=== PATIENT | female | born 1975 | race Caucasian/White ===

== ENCOUNTER → 2019-10-12 15:26 | Outpatient (CLI) | payer OTHER, SELFPAY ==
--- NOTE | ~2019-10-12 | MM_ITS ---
EXAMINATION: MM screening [facility] BI w elisa HISTORY: Screening mammogram TECHNIQUE: Craniocaudal and mediolateral oblique 3-D tomosynthesis images were obtained and synthetic 2-D images were generated. CAD analysis was submitted and interpreted. COMPARISON: 10/10/2018, 09/29/2017, 09/12/2017, 09/06/2016 BREAST PARENCHYMAL COMPOSITION: There are scattered areas of fibroglandular density. FINDINGS: Scattered benign-appearing calcifications are present. There is no evidence of suspicious m ass, calcification, or architectural distortion to suggest malignancy in either breast. There has bee n no suspicious interval change. IMPRESSION: 1. No mammographic evidence of malignancy. 2. Recommend routine screening mammography in one year. BI-RADS Category 2: Benign finding(s). Reviewed, dictated and finalized at location A. PTION SPECIALIST
== END ==
DX: Z12.31 Encounter for screening mammogram for malignant neoplasm of breast (principal)
CPT/HCPCS: 77063; 77067

== ENCOUNTER → 2021-01-15 10:05 | Outpatient (CLI) | payer OTHER, SELFPAY ==
--- NOTE | ~2021-01-15 | MM_ITS ---
EXAMINATION: MM screening [facility] BI w elisa HISTORY: Screening mammogram TECHNIQUE: Craniocaudal and mediolateral oblique 3-D tomosynthesis images were obtained and synthetic 2-D images were generated. CAD analysis was submitted and interpreted. COMPARISON: 10/12/2019, 10/10/2018 bilateral digital screening mammogram examinations 09/29/2017 diagnostic right digital mammogram and limited right breast ultrasound 09/12/2017 bilateral digital screening mammogram BREAST PARENCHYMAL COMPOSITION: The breasts are heterogeneously dense, which may obscure small masses . FINDINGS: Occasional benign calcification. There is no evidence of suspicious mass, calcification, or architectural distortion to suggest malignancy in either breast. There has been no suspicious interv al change. IMPRESSION: 1. No mammographic evidence of malignancy. 2. Recommend routine screening mammography in one year. BI-RADS Category 2: Benign finding(s). Reviewed, dictated and finalized at location A.
== END ==
DX: Z12.31 Encounter for screening mammogram for malignant neoplasm of breast (principal)
CPT/HCPCS: 77063; 77067

== ENCOUNTER → 2021-04-17 17:01 | Outpatient (CLI) | payer OTHER, SELFPAY ==
--- NOTE | ~2021-04-17 | XR_ITS ---
XR lumbar spine min 4V DATE: 04/17/2021 18:04 INDICATION: Low back pain TECHNIQUE: AP, lateral, bilateral oblique views, coned lateral lumbosacral view COMPARISON: None FINDINGS: There is a transitional fifth lumbar vertebra with sacralization and pseudoarthrosis on the left, lumbarization on the right. There is mild lumbar levoscoliosis. No fracture or bone destruction of the lumbar spine is detected. The lumbar pedicles are intact. No s pondylolysis or spondylolisthesis is detected. There is multilevel mild degenerative disc disease of the lumbar spine. Sacroiliac joints are normal. 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 IMPRESSION: Transitional fifth lumbar vertebra with sacralization pseudoarthros is on the left Mild levoscoliosis Multilevel mild degenerative disc disease
--- NOTE | ~2021-04-17 | XR_ITS ---
XR sacroiliac joints min 3V DATE: 04/17/2021 18:04 INDICATION: Low back pain TECHNIQUE: AP and oblique views COMPARISON: None FINDINGS: There is a transitional lumbosacral vertebra with sacralization pseudoarthrosis on the left , lumbarization on the right. Transitional lumbosacral vertebra may be a source of chronic low back p ain. No sacral fracture or bone destruction. The sacroiliac joints appear normal. IMPRESSION: Transitional lumbosacral vertebra with sacralization and pseudarthrosis on the left Reviewed, dictated and finalized at Location A. Reviewed, dictated and finalized at location A. IMPRESSION: Transitional lumbosacral vertebra with sacralization and pseudarthr osis on the left
== END ==
PROVIDERS: PCP Family Medicine; Visit Provider Physician Assistant
DX: M51.36 Other intervertebral disc degeneration, lumbar region (principal)
CPT/HCPCS: 72110; 72202

== ENCOUNTER 2022-02-18 14:29 | Outpatient (CLI) | payer OTHER, SELFPAY ==
--- NOTE | 2022-02-18 | ECHO_ITS ---
Patient Info Name: Anjana Parekh Age: 46 years : 1975 Gender: Female Ht: 68 in Wt: 164 lbs BSA: 1.90 m2 HR: 71 bpm BP: 135 / 82 mmHg Technical Quality: Fair Exam Date: 02/18/2022 3:11 PM Exam Location: [facility] Patient Status: Outpatient Admit Date: 02/18/2022 Staff Ordering Physician: AdánCricket DO Manager Study: Amairani Godwin RDCS Attending Provider: AdánCricket DO Exam Type: CA echo doppler color flow Study Info Indications - HEART MURMUR Complete two-dimensional, color flow and Doppler transthoracic echocardiogram is performed. Summary 1. Complete two-dimensional, color flow and Doppler transthoracic echocardiogram is performed. 2. Left ventricular chamber dimension is normal. 3. Left ventricular systolic function is normal, estimated at 60-65%. 4. The left ventricular diastolic function is normal. 5. E/e' 7 is not elevated. 6. There is trace mitral valve regurgitation. 7. There is mild tricuspid valve regurgitation. 8. No pulmonary hypertension, estimated pulmonary arterial systolic pressure is 25 mmHg. Left Ventricle E/e' 7 is not elevated. Left ventricular chamber dimension is normal. Left ventricular systolic function is normal, estimated at 60-65%. The left ventricular diastolic function is normal. Right Ventricle Right ventricular chamber dimension is normal. Right ventricular systolic function is normal. Left Atria Left atrial chamber dimension is normal. Right Atria Right atrial chamber dimension is normal. Aortic Valve The aortic valve is trileaflet. There is no aortic valve stenosis. There is no aortic valve regurgitation. Pulmonic Valve There is no pulmonic regurgitation. Mitral Valve There is no mitral valve stenosis. There is trace mitral valve regurgitation. Tricuspid Valve There is mild tricuspid valve regurgitation. No pulmonary hypertension, estimated pulmonary arterial systolic pressure is 25 mmHg. Pericardium/Pleural There is no pericardial effusion. Inferior Vena Cava Normal inferior vena cava with >50% collapse upon inspiration consistent with normal right atrial pressure, 5 mmHg. Aorta The aortic root size at the sinus of Valsalva is normal. Left Ventricular Outflow Tract Name Value Normal LVOT 2D LVOT Diameter 2.0 cm LVOT Doppler LVOT Peak Gradient 5 mmHg LVOT Mean Gradient 3 mmHg LVOT VTI 22 cm LVOT VTI/AV VTI Ratio 0.8 LVOT Stroke Volume 68 ml LVOT CO 14.2 l/min LVOT CI 7.5 l/min/m2 Pulmonic Valve Name Value Normal PV Doppler PV Peak Gradient 4 mmHg Mitral Valve
== END 2022-02-18 14:30 | disposition home or self-care (01) ==
LOC: ANHCARD 14:32
PROVIDERS: PCP Student in an Organized Health Care Education/Training Program; Visit Provider Student in an Organized Health Care Education/Training Program
DX: R01.1 Cardiac murmur, unspecified (principal); I36.1 Nonrheumatic tricuspid (valve) insufficiency
CPT/HCPCS: 93306

== ENCOUNTER → 2022-05-31 10:29 | Outpatient (CLI) | payer OTHER, SELFPAY ==
--- NOTE | ~2022-05-31 | MM_ITS ---
EXAMINATION: MM screening [facility] BI w elisa HISTORY: Screening TECHNIQUE: Craniocaudal and mediolateral oblique 3-D tomosynthesis images were obtained and synthetic 2-D images were generated. CAD analysis was submitted and interpreted. COMPARISON: Comparison to multiple prior studies sequentially, with oldest reviewed study dated 09/06. BREAST PARENCHYMAL COMPOSITION: The breasts are heterogeneously dense, which may obscure small masses . FINDINGS: There is no evidence of suspicious mass, calcification, or architectural distortion to sugg est malignancy in either breast. There has been no suspicious interval change. IMPRESSION: 1. No mammographic evidence of malignancy. 2. Recommend routine screening mammography in one year. BI-RADS Category 1: Negative Reviewed, dictated and finalized at location A.
== END ==
PROVIDERS: PCP Student in an Organized Health Care Education/Training Program; Visit Provider Student in an Organized Health Care Education/Training Program
DX: Z12.31 Encounter for screening mammogram for malignant neoplasm of breast (principal)
CPT/HCPCS: 77063; 77067

== ENCOUNTER → 2023-06-18 10:40 | Outpatient (CLI) | payer OTHER, SELFPAY ==
--- NOTE | ~2023-06-18 | MM_ITS ---
EXAMINATION: MM screening [facility] BI w elisa HISTORY: Screening mammogram TECHNIQUE: Craniocaudal and mediolateral oblique 3-D tomosynthesis images were obtained and synthetic 2-D images were generated. CAD analysis was submitted and interpreted. COMPARISON: 05/31/2022, 01/15/2021, 10/12/2019 BREAST PARENCHYMAL COMPOSITION: There are scattered areas of fibroglandular density. FINDINGS: No suspicious mass, calcification, or architectural distortion are identified in either lidia ast to suggest malignancy. There has been no suspicious interval change. IMPRESSION: 1. No mammographic evidence of malignancy. 2. Recommend routine screening mammography in one year. BI-RADS Category 1: Negative Reviewed, dictated and finalized at location A.
== END ==
PROVIDERS: PCP Student in an Organized Health Care Education/Training Program
DX: Z12.31 Encounter for screening mammogram for malignant neoplasm of breast (principal)
CPT/HCPCS: 77063; 77067

== ENCOUNTER 2024-07-02 10:53 | Outpatient (CLI) | payer OTHER, SELFPAY ==
--- NOTE | ~2024-07-02 | MM_ITS ---
EXAMINATION: MM screening [facility] BI w elisa HISTORY: Screening mammogram TECHNIQUE: Craniocaudal and mediolateral oblique 3-D tomosynthesis images were obtained and synthetic 2-D images were generated. CAD analysis was submitted and interpreted. COMPARISON: 06/18/2023, 05/31/2022, 01/15/2021, 10/12/2019 BREAST PARENCHYMAL COMPOSITION:Not Dense. There are scattered areas of fibroglandular density. FINDINGS: No suspicious mass, calcification, or architectural distortion are identified in either lidia ast to suggest malignancy. There has been no suspicious interval change. IMPRESSION: No mammographic evidence of malignancy. Recommend routine screening mammography in one year. BI-RADS Category 1: Negative Reviewed, dictated and finalized at location . CIPAL BOND TRADER
== END 2024-07-02 10:54 | disposition home or self-care (01) ==
PROVIDERS: PCP Student in an Organized Health Care Education/Training Program
DX: Z12.31 Encounter for screening mammogram for malignant neoplasm of breast (principal)
CPT/HCPCS: 77063; 77067

== ENCOUNTER 2025-06-13 10:15 | Outpatient (CLI) | payer OTHER, SELFPAY ==
--- NOTE | ~2025-06-13 | US_ITS ---
EXAMINATION: US abdomen complete, 06/13/2025 10:37 CDT HISTORY: Neutropenia COMPARISON: None Technique: Isaac-scale and color Doppler images were obtained. Findings: LIVER: Lliver contours intact, no lesions. Normal echogenicity. . The liver measures 16.2 cm. GALLBLADDER/BILIARY: There is no gallbladder wall thickening, no pericholecystic fluid, probable polyp measures 3 x 4 mm. CBD 5.1 mm. Austwell sign negative. PANCREAS: Pancreas limited by bowel gas. SPLEEN: Unremarkable, no splenomegaly. KIDNEYS: Right Kidney: Right kidney 10.6 x 4.8 x 5.7 cm, normal. Left Kidney: Left kidney 9.1 x 5.4 x 5.6 cm, normal. AORTA: Normal caliber aorta. IVC: Unremarkable. FREE FLUID: None. Impression: No acute abnormality. Reviewed, dictated and finalized at location P. Impression: No acute abnormality.
--- OUTSIDE RECORDS SUMMARY | 2025-06-13 11:13 | XMS_ITS | Encounter Summary ---
Author Organization [facility] Address [address] [place] [address] Care Team Providers Care Call Worker Person Name Role Phone Cricket Mccain Primary Care Provider + Encounter Details Date Type Department Care Team (Late Contact Info) Description 06/11/2025 External Device Data [facility] ABSTRACTION Provider, Abstract NO ADDRESS ON FILE Social History Tobacco Use Types Packs/Day Years Used Date Smoking Tobacco: Never Smokeless Tobacco: Never Alcohol Use Standard Drinks/Week Comments Yes 2 (1 standard drink = 0.6 oz pur e alcohol) occasionally Feeling Safe Answer Date Recorded Are you in a relationship wi th someone who hurts you emotionally and/or physically? 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 on file Not on file N ot on file documented as of this encounter Plan of Treatment Upcoming Encounters Date Type Department Care Team (Late st Contact Info) Description 06/20/2025 4:30 PM CDT Telephone Check Up [facility] Oncology and Hematology - [place] [address] [place] [address] Jesus Fox MD [address] [place] [address] documented as of this encounter Visit Diagnoses Not on filedocumented in this encounter Care Teams Call Worker Person Relationship Specialty Start Date End Date Cricket Mccain DO [address] [place] [phone] PCP - General Family Practice 03/03/23 documented as of this encounter
--- OUTSIDE RECORDS SUMMARY | 2025-06-13 11:13 | XMS_ITS | Encounter Summary ---
Author Organization [facility] Address 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 file Not on file N ot on file documented as of this encounter Plan of Treatment Upcoming Encounters Date Type Department Care Team (Late st Contact Info) Description 06/20/2025 4:30 PM CDT Telephone Check Up [facility] Oncology and Hematology - [place] [address] [place] [address] Jesus Fox MD [address] [facility] [address] [place] [address] documented as of this encounter Visit Diagnoses Not on filedocumented in this encounter Care Teams Firer Portable Boiler Relationship Specialty Start Date End Date Cricket Mccain DO [address] [place] [phone] PCP - General Family Practice 03/03/23 documented as of this encounter
--- OUTSIDE RECORDS SUMMARY | 2025-06-13 11:13 | XMS_ITS | Encounter Summary ---
Author Organization [facility] Address [address] [place] [address] Care Team Providers Care Marketing Summer Intern Name Role Phone Cricket Mccain DO Primary Care Provider + Encounter Details Date Type Department Care Team (Late st Contact Info) Description 06/25/2024 Jeeran Message Enc [facility] Family & Internal Medicine [address] [phone] [place], [facility] Provider Xray results Social History Tobacco Use Types Packs/Day Years Used Date Smoking Tobacco: Never Smokeless Tobacco: Never Comments:Smoked on and off i n my 20s Alcohol Use Standard Drinks/Week Comments Yes 2 (1 standard drink = 0.6 oz pur e alcohol) 1-2 times a week PHQ-2 Answer Date Recorded Patient Health Questionnaire-2 Score 0 01/19/2024 Comments No Sex and Gender Information Value Date Recorded Sex Assigned at Female 01/18/2025 7:54 AM CDT Legal Sex Female 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
--- OUTSIDE RECORDS SUMMARY | 2025-06-13 11:14 | XMS_ITS | Clinical Summary ---
Author Organization [facility] Address [address] [facility] [place] [address] Phone Care Team Providers Care Drainage Design Coordinator Name Role Phone Cricket Mccain Primary Care Provider + Allergies No known active allergies Medications multivitamin (MULTIPLE VITAMINS ORAL) Take by mouth. Active valACYclovir (VALTREX) 1 gram tablet Take 1,000 mg by mouth 1 time daily as needed. 01/13/2022 Active Active Problems Problem Noted Date Diagnosed Date Pelvic mass 03/08/2022 Encounters Date Type Department Care Team Description 06/12/2025 External Device Data STL ABSTRACTION Provider, Abstract 06/11/2025 External Device Data STL ABSTRACTION Provider, Abstract 06/03/2025 1:30 PM CDT Office Visit [facility] Oncology and Hematology - [place] [address] [place] [address] Jesus Fox MD Neutropenia, unspecified type (Primary Dx); Chronic anemia from Last 3 Months Family History Medical History Relation Name Comments Healthy Brother Healthy Daughter Coronary Artery Disease Father Healthy Father Hypertension Father Stroke Father Diabetes Maternal Cousin Brain Cancer Maternal Grandmother Lung Cancer Mother 71 Osteoporosis Mother 71 Lymphoma Paternal Grandfather Prostate Cancer Paternal Grandfather Healthy Sister Healthy Son Relation Name Status Comments Brother Alive Daughter Alive Father Alive Maternal Cousin Maternal Grandfather Maternal Grandmother Mother 71 Paternal Grandfather Paternal Grandmother Sister Alive Son Alive Social History Tobacco Use Types Packs/Day Years Used Date Smoking Tobacco: Never Smokeless Tobacco: Never Tobacco Cessation:Counseling Given: Not Answered Alcohol Use Standard Drinks/Week Comments Yes 2 (1 standard drink = 0.6 oz pur e alcohol) occasionally Feeling Safe Answer Date Recorded Are you in a relationship wi th someone who hurts you emotionally and/or physically? 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 Not on file N ot on file Last Filed Vital Signs Vital Sign Reading Time Taken Comments Blood Pressure 130/87 06/03/2025 1:33 PM CDT Pulse 76 06/03/2025 1:33 PM CDT Temperature 36.6 C (97.9 F) 06/03/2025 1:33 PM CDT Respiratory Rate 14 06/03/2025 1:33 PM CDT Oxygen Saturation 99% 06/03/2025 1:33 PM CDT Inhaled Oxygen Concentration - - Weight 72.6 kg (160 lb) 06/03/2025 1:33 PM CDT Height 172.7 cm (5' 8) 06/03/2025 1:33 PM CDT Body Mass Index 24.33 06/03/2025 1:33 PM CDT Plan of Treatment Upcoming Encounters Date Type Department Care Team (Late st Contact Info) Description 06/20/2025 4:30 PM CDT Telephone Check Up [facility] Oncology and Hematology - [place] [address] [facility] [address] [place] [address] Jesus Fox MD [address] [facility] [address] [place] [address] Health Maintenance Due Date Last Done Comments HEPATITIS B VACCINES (1 of 3 - 19+ 3-dose series) 1994 FIT-DNA Q 3 years 2020 FIT/FOBT Q 1 year 2020 Flex Sig/CT Colonography Q 5 years 2020 BREAST CANCER SCREENING 05/31/2023 05/31/20 22, 05/31/2022, 01/15/2021, Additional history exists PAP SMEAR 02/01/2025 02/01/2022, 05/2 02/2021, 09/21/2019 INFLUENZA VACCINE (#1) 2025 0, 07/01/2019, 06/24/2019, Additional history exists COVID-19 Vaccine (4 - 2024-2 6 season) 2025 08/13/2021, 11/01/2020, 10/03/2020 ZOSTER VACCINE (1 of 2) 2025 CERVICAL CANCER SCREENING 02/01/2027 HPV/Cotest (21-29) 02/01/2027 02/01/2022, 0 01/15/2021, 09/21/2019 HPV/Cotest (30-65) 02/01/2027 02/01/2022, 0 01/15/2021, 09/21/2019 DTAP/TDAP/TD VACCINES (2 - T d or Tdap) 01/18/2033 01/18/2023 COLORECTAL SCREENING 03/03/2033 03/03/2023, 03/03/20 Colorectal Cancer Screening 03/03/2033 Preventative Visit- Commercial Completed 0 01/18/2025, 01/19/2024, 01/18/2023, Additional history exists Procedures Procedure Name Priority Date/Time Associated Diagnosis Comments COLONOSCOPY REPORT 03/03/2023 7: 55 AM CDT MAMMO 3D GAUDENCIO SCREEN BILAT W OR WO CAD Routine 05/31/2022 Breast cancer screening by mammogram CERV/VAG CYTO SCREEN PAP W/HPV Routine 02/01/2022 2:45 PM CDT Encounter for gynecological examination without abnormal finding Special screening examination for human papillomavirus (HPV) from Last 3 Months or Most Recently Relevant to Health Maintenance Results * COLONOSCOPY REPORT (03/03/2023 7:55 AM CDT) Narrative Procedure Note Kirti Castillo MD - 03/03/2023 7:55 AM CDT [facility] Endoscopy Patient Name: Anjana Brody Procedure Date: 03/03/2023 Date of : 1975 Age: 47 Attending MD: Kirti Castillo MD, Procedure: Colonoscopy Indications: Screening for colorectal malignant neoplasm Providers: Kirti Castillo MD Referring MD: Stephan Brewer MD Requesting Provider: Cricket Mccain DO Medicines: Monitored Anesthesia Care Procedure: Informed consent was obtained for the procedure, including moderate sedation after risks were discussed. Based on the pre-procedure assessment, including review of the patient's medical history, medications, allergies, and review of systems, the patient was deemed to be an appropriate candidate for sedation. A timeout was performed. Continuous ECG monitoring, pulse oximetry, blood pressure monitoring, and direct observation were performed. The Colonoscope was introduced through the anus and advanced to the terminal ileum. The colonoscopy was performed without difficulty. The patient tolerated the procedure well. The quality of the bowel preparation was good. The terminal ileum, ileocecal valve, appendiceal orifice, and rectum were photographed. Estimated Blood Loss: Estimated blood loss was minimal. Findings: The perianal examination was normal. The terminal ileum appeared normal. The colon (entire examined portion) appeared normal. The exam was otherwise without abnormality on direct and retroflexion views. Complications: No immediate complications. Impression: - The examined portion of the ileum was normal. - The entire examined colon is normal. - The examination was otherwise normal on direct and retroflexion views. - No specimens collected. Recommendation: - Patient has a contact number available for emergencies. The signs and symptoms of potential delayed complications were discussed with the patient. Return to normal activities tomorrow. Written discharge instructions were provided to the patient. - Resume previous diet. - Continue present medications. - Repeat colonoscopy in 10 years for screening purposes. Kirti Castillo MD 03/03/2023 7:55:11 AM This report has been signed electronically. Number of Addenda: 0 Procedure Date: 03/03/2023 7:26:23 AM [id number] [address] [place] Kirti Castillo MD GI PROCEDURE ORDERABLES F inal Result * MAMMO SCRN BILAT 3D GAUDENCIO W OR WO CAD (05/31/2022) Anatomical Region Laterality Modality Breast Bilateral Mammography us Nick Whittaker MD MAMMO ORDERABLES Final Resul t * (ABNORMAL) CERV/VAG CYTO SCREEN PAP W/HPV (02/01/2022 2:45 PM CDT) CLINICAL INFORMATION [facility] Comment:Information not prov ided LAST MENSTRUAL PERIOD [facility] Comment:INFORMATION NOT PROV IDED PREV PAP: [facility] Comment:INFORMATION NOT PROV IDED PREV BX: [facility] Comment:INFORMATION NOT PROV IDED SOURCE [facility] Comment:Endocervix ADEQUACY: [facility] Comment: Satisfactory for evaluation. Endocervical/transformation zone component absent. Age and/or menstrual status not provided PAP INTERP [facility] Comment:Negative for intraep ithelial lesion or malignancy. COMMENT (PAP TEST) [facility] Comment: This Pap test has been evaluated with computer assisted technology. CHIROPRACTIC ASSISTANT: [facility] Comment: DDS, CT(ASCP) CT screening location: [place] [address] [place] [address] REVIEW CHIROPRACTIC ASSISTANT: [facility] Comment: AMW, CT(ASCP) CT screening location: [place] [address] [place] [address] EXPLANATORY NOTE [facility] Comment: EXPLANATORY NOTE: The Pap is a screening test for cervical cancer. It is not a diagnostic test and is subject to false negative and false positive results. It is most reliable when a satisfactory sample, regularly obtained, is submitted with relevant clinical findings and history, and when the Pap result is evaluated along with historic and current clinical information. HPV E6/E7 Detected( A) Not Detected [facility] Comment: Methodology: Industrial Conveyor Belt Repairer-Mediated Amplification This assay detects E6/E7 viral messenger RNA (mRNA) from 14 high-risk HPV types (16,18,31,33,35,39,45,51,52,56,58,59,66,68). Cervical sources are required for HPV testing. If a vaginal source from a patient who has had a total hysterectomy with removal of cervix was submitted, please contact the testing laboratory for alternative testing options. For additional information, please refer to http://education.Eveo.[place]/faq/RHL313r3 (This link if provided for information/ educational purposes only.) Test Performed at: [facility] [address] [id number] Edwin Arenas D.O., MPH SL Genital SWAB OF ENDOCERVIX / Unknown 02/01/2022 2:45 PM CDT 02/01/2022 11:40 PM CDT us Nick Whittaker MD PATHOLOGY/CYTOLOGY ORDERABLE S Final Result [facility] [phone] from Last 3 Months or Most Recently Relevant to Health Maintenance Insurance [employer] OPEN ACCESS [facility] Address: [facility] [id number] [place] [phone] [employer] OPEN ACCESS Advance Directives For more information, please contact: [phone] * Full Code (Latest Code Status on File) Date Activated Date Inactivated Comments 03/03/2023 7:06 AM 03/03/2023 10:30 AM Care Teams Drainage Design Coordinator Relationship Specialty Start Date End Date Cricket Mccain DO [address] [place] [phone] PCP - General Family Practice 03/03/23
--- OUTSIDE RECORDS SUMMARY | 2025-06-13 11:14 | XMS_ITS | Clinical Summary ---
Author Organization [facility] Address [address] [place] [address] Care Team Providers Care Council Member Name Role Phone Stephan Brewer MD Primary Care Provider [phone] Source Comments [facility],non-owned Affiliates and Associated Physician Practices is amultiple site organization consisting of ambulatory clinics and hospital sitesin [place], [place], [place] and [place]. This disclosure is being madepursuant to the Care Everywhere program and may not contain all information available regarding this patient. Last updated 18.[facility] Allergies No known active allergies Medications * Be aware that medications may not be up to date on this document. Alwaysverify current medications with the patient. Multiple Vitamin (MULTI VITAMIN DAILY PO) Active fluticasone propionate (FLONASE) 50 MCG/ACT nasal spray [place] 2 sprays into each nostril once daily 1 bottles 05/03/2019 Active Immunizations Immunization Administration Dates Next Due INFLUENZA VACCINE, QUADR. 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 Gender Identity Not on file Sexual Orientation Not on file Last Filed Vital Signs Vital Sign Reading Time Taken Comments Blood Pressure 112/78 05/03/2019 3:31 PM CDT Pulse 78 05/03/2019 3:31 PM CDT Temperature 37.1 C (98.7 F) 05/03/2019 3:31 PM CDT Respiratory Rate 17 05/03/2019 3:31 PM CDT Oxygen Saturation 98% 04/13/2019 9:10 AM CDT Inhaled Oxygen Concentration - - Weight 72.6 kg (160 lb) 05/03/2019 3:31 PM CDT Height 175.3 cm (5' 9) 05/03/2019 3:31 PM CDT Body Mass Index 23.63 05/03/2019 3:31 PM CDT Plan of Treatment Health Maintenance Due Date Last Done Comments COLOGUARD (AGES 45-75) - COL ON CA SCREENING 1975 COLON MONITORING 1975 COLONOSCOPY - COLON CA SCREENING 1975 CT COLONOGRAPHY - COLON CA SCREENING 1975 Colorectal Cancer Screening 1975 FIT - COLON CA SCREENING 1975 FLEX SIG - COLON CA SCREENING 1975 LIPID TESTING 1975 MAMMOGRAM 1975 HIV SCREENING 1990 HEPATITIS C SCREENING 05/09/1993 DTAP/TDAP/TD VACCINES (1 - Tdap) 1994 HEPATITIS B VACCINE (1 of 3 - 19+ 3-dose series) 1994 DEPRESSION SCREENING 08/22/2024 COVID-19 VACCINE (1 - 2023-2 5 season) 2025 INFLUENZA VACCINE (#1) 2025 0, 06/24/2019, 07/15/2017 PNEUMOCOCCAL VACCINE 50+ (1 of 1 - PCV) 2025 ZOSTER VACCINE (1 of 2) 2025 HIB VACCINE Aged Out No longer eligi ble based on patient's age to complete this topic HPV VACCINE Aged Out No longer eligi ble based on patient's age to complete this topic MENINGOCOCCAL (Group B) VACCINE SHARED DECISION-MAKING Aged Out No longer eligible based on patient's age to complete this topic MENINGOCOCCAL GROUPS A/C/Y/W VACCINE Aged Out No longer eligible b ased on patient's age to complete this topic Insurance [facility] Care Teams Council Member Relationship Specialty Start Date End Date Stephan Brewer MD [address] [place] [address] PCP - General Family Medicine 07/15/17
--- OUTSIDE RECORDS SUMMARY | 2025-06-13 11:14 | XMS_ITS | Encounter Summary ---
Author Organization [facility] Address 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 Gender Identity Not on file Sexual Orientation Not on file documented as of this encounter Plan of Treatment Upcoming Encounters Date Type Department Care Team (Late st Contact Info) Description 06/20/2025 4:30 PM CDT Telephone Check Up [facility] Oncology and Hematology - [place] [address] [facility] [address] [facility] [address] [place] [address] Jesus Fox MD [address] [place] [address] documented as of this encounter Procedures Procedure Name Priority Date/Time Associated Diagnosis Comments IRON PANEL Routine 01/10/2006 9:31 AM CDT documented in this encounter Results * (ABNORMAL) IRON PANEL (01/10/2006 9:31 AM CDT) IRON 50 37 - 160 ug/dL INTERFACE SYSTEM Comment:Hemolyzed: Result ma y be falsely elevated. TRANSFERRIN 303 200 - 360 mg/dL INTERFACE SYSTEM IRON % SATURATION 13(L) 15 - 50 % INTERFACE SYSTEM Comment:Hemolyzed: Result ma y be falsely elevated. TIBC 385 250 - 450 ug/dL INTERFACE SYSTEM 01/10/2006 9:31 AM CDT us P Sam Leong MD CHEMISTRY ORDERABLES Final Res ult Performing Organization Address City/State/[facility] Co de Phone Number INTERFACE SYSTEM Refer to clinic/hospital department documented in this encounter Visit Diagnoses Diagnosis Telogen effluvium- Primary documented in this encounter Care Teams Vehicle Detailer Relationship Specialty Start Date End Date Cricket Mccain DO [address] [place] [phone] PCP - General Family Practice 03/03/23 documented as of this encounter
--- OUTSIDE RECORDS SUMMARY | 2025-06-13 11:14 | XMS_ITS | Encounter Summary ---
Author Organization [facility] Address 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 Gender Identity Not on file Sexual Orientation Not on file documented as of this encounter Plan of Treatment Upcoming Encounters Date Type Department Care Team (Late st Contact Info) Description 06/20/2025 4:30 PM CDT Telephone Check Up [facility] Oncology and Hematology - [place] [address] [place] [address] [address] [place] [address] Jesus Fox MD [address] [facility] [address] [place] [address] documented as of this encounter Procedures Procedure Name Priority Date/Time Associated Diagnosis Comments URINALYSIS WITH REFLEX CULTURE Routine 09/05/2007 5:28 PM AIRWORTHINESS INSPECTOR URINALYSIS W/REFLEX MICROSCOPIC Routine 09/05/2007 5:28 PM AIRWORTHINESS INSPECTOR documented in this encounter Results * URINALYSIS (09/05/2007 5:28 PM AIRWORTHINESS INSPECTOR) COLOR UA Pale Yellow INTERFAC E SYSTEM CLARITY UA Clear Clear INTERFACE SYSTEM SPECIFIC GRAVITY UA 1.005 1.001 - 1.035 INTERFACE SYSTEM PH UA 7.0 5.0 - 8.0 INTERFACE SYSTEM LEUKOCYTE ESTERASE UA Negative Negative INTERFACE SYSTEM NITRITE UA Negative Negative INTERFACE SYSTEM PROTEIN UA Negative Negative INTERFACE SYSTEM GLUCOSE UA Negative Negative INTERFACE SYSTEM KETONES UA Negative Negative INTERFACE SYSTEM UROBILINOGEN UA <1 <=1 mg/dL INTE RFACE SYSTEM BILIRUBIN UA Negative Negative INTERFA CE SYSTEM BLOOD UA Negative Negative INTERFACE SYSTEM 09/05/2007 5:28 PM AIRWORTHINESS INSPECTOR Nick Whittaker MD URINE ORDERABLES Edited Performing Organization Address [facility] de Phone Number INTERFACE SYSTEM Refer to clinic/hospital department * URINALYSIS WITH REFLEX CULTURE (09/05/2007 5:28 PM AIRWORTHINESS INSPECTOR) URINE CULTURE ORDER Not indicated INTERFACE SYSTEM Comment: Criteria for a reflex culture include one or more of the following: Abn ormal nitrite, leukocyte esterase, WBCs or RBCs. Lack of qualifying criteria does not exclude the possiblity of a urinary tract infection. Dilute urine, drug interference, etc. may decrease the sensitivity of the criteria analytes. 09/05/2007 5:28 PM AIRWORTHINESS INSPECTOR Nick Whittaker MD URINE ORDERABLES Edited Performing Organization Address [facility] Phone Number INTERFACE SYSTEM Refer to clinic/hospital department documented in this encounter Visit Diagnoses Not on filedocumented in this encounter Care Teams Finishing Area Operator Relationship Specialty Start Date End Date Cricket Mccain DO [address] [place] [phone] PCP - General Family Practice 03/03/23 documented as of this encounter
--- OUTSIDE RECORDS SUMMARY | 2025-06-13 11:14 | XMS_ITS | Encounter Summary ---
Author Organization [facility] Address 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 Gender Identity Not on file Sexual Orientation Not on file documented as of this encounter Plan of Treatment Upcoming Encounters Date Type Department Care Team (Late st Contact Info) Description 06/20/2025 4:30 PM CDT Telephone Check Up [facility] Oncology and Hematology - [place] [address] [facility] [address] [place] [address] Jesus Fox MD [address] [facility] [address] [place] [address] documented as of this encounter Visit Diagnoses Diagnosis Unspecified indication for care or intervention related to labor and delivery, delivered- Primary documented in this encounter Care Teams Search Engine Optimization Consultant Relationship Specialty Start Date End Date Cricket Mccain DO [address] [place] [phone] PCP - General Family Practice 03/03/23 documented as of this encounter
--- OUTSIDE RECORDS SUMMARY | 2025-06-13 11:14 | XMS_ITS | Clinical Summary ---
Author Organization [facility] Address [address] [place] [address] Care Team Providers Care Head Of Global Strategic Partnerships Name Role Phone Nick Whittaker MD Unavailable [phone] Cricket Mccain DO Primary Care Provide r Allergies No known active allergies Medications multivitamin tablet Take by mouth Active valACYclovir (VALTREX) 1 gram tablet 07/09/2019 Active carisoprodoL (SOMA) 350 mg tablet Take 1 tablet (350 mg total) by mouth 3 (three) times a day as needed Active norgestrel-ethi nyl estradioL (ELIAZAR-OGESTRGurvinder HAYES) 0.3-30 mg-mcg per tabletIndicatio ns:Dysmenorrhea Take 1 tablet by mouth daily Skip placebo pills. Take active pills continuously . 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 Immunizations Immunization Administration Dates Next Due Influenza, Quadrivalent, Jodi l Culture-based MDCK, Antibiotic Free, Intramuscular 06/09/2018 Influenza, Quadrivalent, Spl it, Preservative Free, Intramuscular 06/10/2020,06/24/2019,07/15/2017 Influenza, Unspecified 06/26/2024,2022,06/15/2022,06/20 Tdap 01/18/2023 Surgical History Surgery Date Site/Laterality Comments SECTION CERVICAL BIOPSY W/ LOOP ELECTRODE EXCISION N/A Medical History Medical History Date Comments Heart murmur Family History Medical History Relation Name Comments Heart disease Father Hyperlipidemia Father Stroke Father Cancer Mother Stroke Mother Relation Name Status Comments Father Mother Social History Tobacco Use Types Packs/Day Years Used Date Smoking Tobacco: Never Smokeless Tobacco: Never Tobacco Cessation:Counseling Given: Not Answered Comments Unknown Sex and Gender Information Value Date Recorded Sex Assigned at Not on file Legal Sex Female 4:06 AM MOBILE QA TESTER Gender Identity Female 09/07/2021 1:17 PM MOBILE QA TESTER Sexual Orientation Straight 04/29/2021 2: 59 PM CDT Obstetrics History Para Term AB IAB SAB Ectopic Multiple Livin g Live Births 2 2 2 Date Outcome GA Total Labor Labor/2nd/3rd Weight Sex Type Anes PTL Mary A1 A5 Name Clin 2003 Term 40w 0d 3.799 kg (8 lb 6 oz) M CS-LT ranv John Comments:FTP 2007 Term 40w 0d 3.771 kg (8 lb 5 oz) F CS-LT ranv Kaci Last Filed Vital Signs Vital Sign Reading Time Taken Comments Blood Pressure 136/78 08/03/2024 1:03 PM MOBILE QA TESTER Pulse 84 08/03/2024 1:03 PM MOBILE QA TESTER Temperature 36.6 C (97.8 F) 08/03/2024 1:03 PM MOBILE QA TESTER Respiratory Rate 16 08/03/2024 1:03 PM MOBILE QA TESTER Oxygen Saturation 99% 08/03/2024 1:03 PM MOBILE QA TESTER Inhaled Oxygen Concentration - - Weight 72.7 kg (160 lb 4.8 oz) 08/03/2024 1:03 P M MOBILE QA TESTER Height 174 cm (5' 8.5) 08/03/2024 1:03 PM MOBILE QA TESTER Body Mass Index 24.02 08/03/2024 1:03 PM MOBILE QA TESTER Plan of Treatment Health Maintenance Due Date Last Done Comments Colon Cancer Screening-Colonoscopy 1975 Depression Screening 1975 Hepatitis C Screening 1975 Hepatitis B Screening 1993 Regular Well Visit/Exam 18-64 1993 Breast Cancer Screening-Mammogram 05/31/2023 05/31/2022, 05/31/2022, 05/31/2022 Covid-19 Vaccine ( season) 2025 08/13/2021, 11/01/2020, 10/03/2020 Influenza Vaccine (#1) 2025 , 07/07/2023, 06/15/2022, Additional history exists Zoster Vaccine (1 of 2) 2025 Cervical Cancer Screening 08/03/2025 08/03/2024, DTaP/Tdap/Td Vaccine (2 - Td or Tdap) 01/18/2033 01/18/2023 Pneumococcal vaccine <65 Aged Out No longer eligible based on patient's age to complete this topic Procedures Procedure Name Priority Date/Time Associated Diagnosis Comments HIGH RISK HPV DNA DETECTION WITH GENOTYPING Routine 08/03/2024 5:26 PM MOBILE QA TESTER Abnormal uterine bleeding from Last 3 Months or Most Recently Relevant to Health Maintenance Results * High Risk HPV DNA Detection with Genotyping (Molecular component) (08/03/2024 5:26 PM MOBILE QA TESTER) Pathologist [facility] HPV HR 16 Not Detected Not Detected [facility] HPV HR 18 Not Detected Not Detected [facility] HPV HR Non 16/18 Not Detected Not Detected [facility] Comment: Interpretive Data Nucleic acid amplification for detection of high-risk Human Papilloma virus (HPV) is performed by the Bharathi Lui 6800 HPV test. This assay specifically detects HPV-16 and HPV-18 genotypes. The following HPV genotypes are detected as high-risk HPV: HPV-31, 33, 35, ,39, 45, 51, 52, 56, 58, 59, 66, and 68. This assay has been approved by the [place] Food and Drug Administration for detection of HPV in cervical specimens collected by a physician using an endocervical brush/spatula or cervical broom and placed in the ThinPrep Pap Test PreservCyt collection containers. The performance characteristics of this test have been verified by the [facility] Molecular Infectious Disease laboratory. Correlate with separately reported cytology results, as applicable. Interpretive data last revised 23 Endocervical 08/03/2024 5:26 PM MOBILE QA TESTER 08/07/2024 12:52 AM MOBILE QA TESTER Narrative [facility] - 08/08/2024 4:33 AM MOBILE QA TESTER Clinical history and diagnosis->History of abnormal pap s/p LEEP Number of vials->1 Testing type->Screening Last menstrual period (date if known)->07/19/2024 Contraceptive use-> control pills us Rodney Saleh MD LAB BODY FLUIDS AND STOOLS REBECCA JOY Final Result [facility] Department [place] [address] [facility] from Last 3 Months or Most Recently Relevant to Health Maintenance Insurance [facility] PLUS [facility] H[facility]/PPO Address: [address] [address] [place] [address] CIG ALLEGIANCE [employer] Care Teams Head Of Global Strategic Partnerships Relationship Specialty Start Date End Date Cricket Mccain DO [address] [place] [id number] PCP - General Family Medicine 03/06/24 Nick Whittaker MD [address] [place] [phone] Consulting Physician Obstetrics and Gynecology 03/11/22
--- OUTSIDE RECORDS SUMMARY | 2025-06-13 11:14 | XMS_ITS | Clinical Summary ---
Author Organization [facility] Address [facility] [address] Care Team Providers Care Staff Radiographer Name Role Phone Cricket Mccain DO Primary Care Provider + Allergies No known active allergies Medications Multiple Vitamin (MULTIVITAMIN ADULT OR) Take 1 tablet by mouth daily. Active carisoprodol (SOMA) 350 MG tablet Take 1 tablet (350 mg total) by mouth. Active valACYclovir (VALTREX) 1 g tabletIndications :Recurrent cold sores,Encounter for preventative adult health care examination Take 1 tablet (1,000 mg total) by mouth 2 (two) times daily. 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 Heart murmur 01/13/2022 Chronic low back pain with s ciatica, sciatica laterality unspecified, unspecified back pain laterality 01/13/2022 Resolved Problems Problem Noted Date Diagnosed Date Resolved Date Pelvic mass 03/08/2022 01/18/2025 Iron deficiency anemia, unsp ecified iron deficiency anemia type 01/13/2022 01/18/2025 Encounters Date Type Department Care Team Description 04/24/2025 [place] [employer] Message Enc [facility] Family & Internal Medicine [address] [phone] Cricket Mccain DO Data Science And Iot Manager from Last 3 Months Immunizations Immunization Administration Dates Next Due Influenza (Generic) 06/26/2024,06/20/2021 Influenza Adult (Generic) 07/07/2023,,06/10/2020,2018,06/09/2018,07/15/2017 MODERNA COVID-19 (12+) MRNA, LNP-S, PF, 100 MCG/ 0.5 ML DOSE 11/01/2020,10/03/2020 MODERNA COVID-19 (NEW CAR GET READY MECHANIC DESTINEY HERB), MRNA, LNP-S, PF, 50 MCG/ 0.25 ML DOSE 08/13/2021 Tdap (Adacel) 01/18/2023 Family History Medical History Relation Comments Heart Disease Father Hypertension Father Cancer Mother Lung cancer Miscarriages / Stillbirths Mother Relation Status Comments Father Mother Social History Tobacco Use Types Packs/Day Years Used Date Smoking Tobacco: Never Smokeless Tobacco: Never Tobacco Cessation:Counseling Given: No Comments:Smoked on and off in my 20s Alcohol Use Standard Drinks/Week Comments Yes 2 (1 standard drink = 0.6 oz pur e alcohol) occasional PHQ-2 Answer Date Recorded Patient Health Questionnaire-2 Score 1 01/18/2025 Comments No Sex and Gender Information Value Date Recorded Sex Assigned at Female 01/18/2025 7:54 AM CDT Legal Sex Female 8:57 AM SENIOR QUALITY MANAGER Gender Identity Female 01/18/2025 7:54 AM CDT Sexual Orientation Straight 01/18/2025 7: 54 AM CDT Occupation Industry Job Start Date Job End Date teacher Not on file Not on file Not on file Last Filed Vital Signs Vital Sign Reading Time Taken Comments Blood Pressure 110/62 01/18/2025 7:25 AM CDT Pulse 79 01/18/2025 7:25 AM CDT Temperature 36.6 C (97.9 F) 01/18/2025 7:25 AM CDT Respiratory Rate 16 01/18/2025 7:25 AM CDT Oxygen Saturation 98% 01/18/2025 7:25 AM CDT Inhaled Oxygen Concentration - - Weight 69.3 kg (152 lb 11.2 oz) 01/18/2025 7:25 AM CDT Height 175.3 cm (5' 9) 01/18/2025 7:25 AM CDT Body Mass Index 22.55 01/18/2025 7:25 AM CDT Plan of Treatment Health Maintenance Due Date Last Done Comments Cervical Cancer Screening Pap Smear (Age 30 to 64) Every 3 Years 1975 Hepatitis B Vaccines (1 of 3 - 19+ 3-dose series) 1994 Cervical Cancer Screening Pap with HPV Testing (Age 30 to 64) Every 5 Years 2005 Cervical Cancer Screening with HPV 2005 Pneumococcal Vaccine: 50+ Years (1 of 1 - PCV) 2025 Zoster Vaccines (1 of 2) 2025 Influenza Adult (#1) 2025 06/26/2024, 07/07/2023, 06/15/2022, Additional history exists Mammogram Screening 07/02/2025 07/02/2024, 06/18/2023, 05/31/2022, Additional history exists Annual Physical 01/18/2026 01/18/2025, 12/22, 01/18/2023 DTaP, Tdap and Td Vaccines (2 - Td or Tdap) 01/18/2033 01/18/2023 Colorectal Cancer Screening Colonoscopy (10 Years) 03/03/2033 Postponed from 1975 (Per Provider Recommendation) COVID-19 Vaccine ( season) 2075 08/13/2021, 11/01/2020, 10/03/2020 Postponed from 04/22/2025 (Patient Refused) Hepatitis C Completed 02/04/2022 PHQ-2 (Physician [place]) Completed 01/18/2025 Hepatitis A Vaccines Aged Out No long er eligible based on patient's age to complete this topic Meningococcal B Vaccine Aged Out No l onger eligible based on patient's age to complete this topic Meningococcal Vaccine Aged Out No ruth alma delia eligible based on patient's age to complete this topic RSV Immunizations Under 20 Months Aged Out No longer eligible based on patient's age to complete this topic Procedures Procedure Name Priority Date/Time Associated Diagnosis Comments MAMMOGRAM GENERIC (SCAN ORDER) 07/02/2024 HEPATITIS C ANTIBODY Routine 02/04/2022 7:47 AM CDT Need for hepatitis C screening test from Last 3 Months or Most Recently Relevant to Health Maintenance Results * MAMMOGRAM GENERIC (SCAN ORDER) (07/02/2024) Anatomical Region Laterality Modality Other 07/02/2024 us Doc [facility] Scanned SCANNING Final Resu lt * HEPATITIS C ANTIBODY (02/04/2022 7:47 AM CDT) HEPATITIS C AB NON-REACTI VE NON-REACT TAMMY 02/04/2022 6:14 PM CDT [facility] Comment: ANTIBODIES TO HCV NOT DETECTED. DOES NOT EXCLUDE THE POSSIBILITY OF EXPOSURE TO HCV. 02/04/2022 7:47 AM CDT us Cricket Mccain DO LABORATORY Final Re sult [facility] [address] [place] [address], [id number] from Last 3 Months or Most Recently Relevant to Health Maintenance Insurance [employer] Care Teams Staff Radiographer Relationship Specialty Start Date End Date Cricket Mccain DO [address] [place] [id number] PCP - General FAMILY PRACTICE 01/13/22
--- OUTSIDE RECORDS SUMMARY | 2025-06-13 11:14 | XMS_ITS | Encounter Summary ---
Author Organization [facility] Address [address] [place] [address] Care Team Providers Care Spacer Type Bar And Segment Name Role Phone Cricket Mccain DO Primary Care Provider + Encounter Details Date Type Department Care Team (Late st Contact Info) Description 09/07/2007 Outpatient Historical HIS OB PREADMIT Nick Whittaker MD [address] [place] [phone] Normal Delivery; Deliv Social History Tobacco Use Types Packs/Day Years Used Date Smoking Tobacco: Never Assessed Comments Unknown Sex and Gender Information Value Date Recorded Sex Assigned at Not on file Legal Sex Female 3:19 AM LEAD FABRICATOR Gender Identity Not on file Sexual Orientation Not on file documented as of this encounter Plan of Treatment Upcoming Encounters Date Type Department Care Team (Late st Contact Info) Description 06/20/2025 4:30 PM CDT Telephone Check Up [facility] Oncology and Hematology - [place] [address] [place] [address] [address] [place] [address] Jesus Fox MD [address] [facility] [address] [place] [address] documented as of this encounter Procedures Procedure Name Priority Date/Time Associated Diagnosis Comments CBC WITH DIFFERENTIAL Routine 10/09/2007 9:55 AM LEAD FABRICATOR URINALYSIS W/REFLEX MICROSCOPIC Routine 10/09/2007 9:55 AM LEAD FABRICATOR documented in this encounter Results * URINALYSIS (10/09/2007 9:55 AM LEAD FABRICATOR) [facility] LEUKOCYTE ESTERASE UA Negative Negative [facility] SPECIFIC GRAVITY UA 1.013 1.001 - 1.035 [facility] BLOOD UA Negative Negative [facility] GLUCOSE UA Negative Negative [facility] COLOR UA Yellow [facility] NITRITE UA Negative Negative [facility] UROBILINOGEN UA <1 <=1 mg/dL [facility] PH UA 6.5 5.0 - 8.0 [facility] KETONES UA Negative Negative [facility] CLARITY UA Clear Clear [facility] PROTEIN UA Negative Negative [facility] BILIRUBIN UA Negative Negative [facility] Urine, clean catch 10/09/2007 9:55 AM LEAD FABRICATOR 10/09/2007 10:14 AM LEAD FABRICATOR us Nick Whittaker MD URINE ORDERABLES Final Resul t [facility] [address] [facility] [place] BARRI[place] [address] * (ABNORMAL) CBC WITH DIFFERENTIAL (10/09/2007 9:55 AM LEAD FABRICATOR) Pathologist [facility] MPV 12.2 9.3 - 12.4 fL [facility] HEMATOCRIT 36.4 35.5 - 44.0 % [facility] RDW-STDEV 44.5 37.1 - 48.7 fL [facility] RBC 4.11 3.90 - 4.90 M/uL [facility] MCHC 33.5 31.5 - 35.5 % [facility] MCV 88.6 82.0 - 99.0 fL [facility] PLATELETS 190 140 - 350 K/uL [facility] HEMOGLOBIN 12.2 11.8 - 14.8 g/dL [facility] RDW 13.9 11.5 - 14.5 % [facility] WBC 9.3 4.0 - 9.8 K/uL [facility] MCH 29.7 27.2 - 32.6 pg [facility] BASOPHILS 0 0 - 2 % [facility] BASOPHILS ABSOLUTE 0.03 0.00 - 0.20 K/uL [facility] MONOCYTES 6 3 - 13 % [facility] MONOCYTE ABSOLUTE 0.58 0.10 - 1.30 K/uL [facility] NEUTROPHILS 74(H) 45 - 70 % [facility] NEUTROPHIL ABSOLUTE 6.85 1.90 - 7.00 K/uL [facility] EOSINOPHILS 1 0 - 7 % [facility] EOSINOPHIL ABSOLUTE 0.05 0.00 - 0.70 K/uL [facility] LYMPHOCYTES 19 16 - 45 % [facility] LYMPHOCYTE ABSOLUTE 1.78 0.70 - 4.50 K/uL [facility] Blood specimen (specimen) 10/09/2007 9:55 AM LEAD FABRICATOR 10/09/2007 10:13 AM LEAD FABRICATOR us Nick Whittaker MD HEMATOLOGY ORDERABLES Edited INTERFACE SYSTEM Refer to clinic/hospital department [facility] [address] [place]SA REDD [address] documented in this encounter Visit Diagnoses Diagnosis Normal delivery delivery, without mention of indication, delivered, with or without mention of antepartum condition documented in this encounter Care Teams Spacer Type Bar And Segment Relationship Specialty Start Date End Date Cricket Mccain DO [facility][note 3][address] [place] [address] PCP - General Family Practice 03/03/23 documented as of this encounter
== END 2025-06-13 10:16 | disposition home or self-care (01) ==
PROVIDERS: PCP Student in an Organized Health Care Education/Training Program; Visit Provider Internal Medicine Hematology & Oncology
DX: D70.9 Neutropenia, unspecified (principal)
CPT/HCPCS: 76700

== ENCOUNTER 2025-07-10 11:49 | Outpatient (CLI) | payer OTHER, SELFPAY ==
--- NOTE | ~2025-07-10 | MM_ITS ---
EXAMINATION: MM screening vee BI w elisa HISTORY: Screening TECHNIQUE: Craniocaudal and mediolateral oblique 3-D tomosynthesis images were obtained and synthetic 2-D images were generated. CAD analysis was submitted and interpreted. COMPARISON: Comparison to multiple prior studies sequentially, with oldest reviewed study dated , 10/12/2019 BREAST PARENCHYMAL COMPOSITION: Not Dense: There are scattered areas of fibroglandular density. FINDINGS: There is no evidence of suspicious mass, calcification, or architectural distortion to suggest malignancy in either breast. IMPRESSION: 1. No mammographic evidence of malignancy. 2. Recommend routine screening mammography in one year. BI-RADS Category 1: Negative Reviewed, dictated and finalized at location B. L CLE[employer]ER HAND
--- OUTSIDE RECORDS SUMMARY | 2025-07-10 17:17 | XMS_ITS | Clinical Summary ---
Author Organization [facility] Address [address] [place] [address] Phone Care Team Providers Care Cash Sales Audit Clerk Name Role Phone Cricket Mccain Primary Care Provider + Allergies No known active allergies Medications multivitamin (MULTIPLE VITAMINS ORAL) Take by mouth. Active valACYclovir (VALTREX) 1 gram tablet Take 1,000 mg by mouth 1 time daily as needed. 01/13/2022 Active Active Problems Problem Noted Date Diagnosed Date Pelvic mass 03/08/2022 Encounters Date Type Department Care Team Description 07/03/2025 Abstract [facility] Oncology and Hematology - Alfie [address] [place] [phone] Jesus Fox MD 06/26/2025 4:30 PM SALES REPRESENTATIVE Telephone Check Up [facility] Oncology and Hematology - [place]fie [address] [place] [address] Jesus Fox MD Chronic anemia (Primary Dx) 06/21/2025 Orders Only [facility] Oncology and Hematology - [place]fie [address] [place] [address] Jesus Fox MD 06/13/2025 Orders Only [facility]cology and Hematology - [place]fie [address] [place] [address] Jesus Fox MD 06/12/2025 External Device Data ST[facility] ABSTRACTION Provider, Abstract 06/11/2025 External Device Data ST[facility] ABSTRACTION Provider, Abstract 06/03/2025 1:30 PM CDT Office Visit [facility]cology and Hematology [facility] [address] [place] [address] [address] [place] [address] Jesus Fox MD Neutropenia, unspecified [...] on file Legal Sex Female 3:19 AM SALES REPRESENTATIVE Gender Identity Not on file Sexual Orientation Not on file 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 Not on file [...] Care Team (Late st Contact Info) Description 11/06/2025 2:15 PM CDT Office Visit [facility]cology and Hematology - Alfie [address] [facility] [address] [place] [address] Jesus Fox MD [address] [facility] [address] [place] [address] Health Maintenance Due Date Last Done Comments HEPATITIS B VACCINES (1 of 3 - 19+ 3-dose series) 1994 FIT-DNA Q 3 years 2020 FIT/FOBT Q 1 year 2020 Flex Sig/CT Colonography Q 5 years 2020 BREAST CANCER SCREENING 05/31/2023 05/31/20 22, 05/31/2022, 01/15/2021, Additional history exists PAP SMEAR 02/01/2025 02/01/2022, 052 02/2021, 09/21/2019 INFLUENZA VACCINE (#1) 2025 0, 07/01/2019, 06/24/2019, Additional history exists COVID-19 Vaccine (2024-2 6 season) 2025 08/13/2021, 11/01/2020, 10/03/2020 ZOSTER VACCINE (1 of 2) 2025 CERVICAL CANCER SCREENING 02/01/2027 HPV/Cotest (21-29) 02/01/2027 02/01/2022, 0 01/15/2021, 09/21/2019 HPV/Cotest (30-65) 02/01/2027 02/01/2022, 0 01/15/2021, 09/21/2019 DTAP/TDAP/TD VACCINES (2 - T d or Tdap) 01/18/2033 01/18/2023 COLORECTAL SCREENING 03/03/2033 03/03/2023, 03/03/20 Colorectal Cancer Screening 03/03/2033 Procedures Procedure Name Priority Date/Time Associated Diagnosis Comments COMPREHENSIVE METABOLIC PANEL Routine 06/17/2025 9:52 AM CDT VITAMIN B12 AND FOLATE Routine 06/13/2025 1:51 PM CDT Chronic anemia TRANSFERRIN RECEPTOR TFR SOLUBLE Routine 06/13/2025 1:51 PM CDT Chronic anemia METHYLMALONIC ACID Routine 06/13/2025 1: 51 PM CDT Chronic anemia IRON, TIBC, AND PERCENT SATURATION Routine 06/13/2025 1:51 PM CDT Chronic anemia FERRITIN Routine 06/13/2025 1:51 PM CDT Chronic anemia SPIKE SCREEN W/REFLEX Routine 06/13/2025 1 :51 PM CDT Neutropenia, unspecified type US ABDOMEN COMPLETE Routine 06/13/2025 1 2:19 PM CDT COLONOSCOPY REPORT 03/03/2023 7: 55 AM CDT MAMMO 3D GAUDENCIO SCREEN BILAT W OR WO CAD Routine 05/31/2022 Breast cancer screening by mammogram CERV/VAG CYTO SCREEN PAP W/HPV Routine 02/01/2022 2:45 PM CDT Encounter for gynecological examination without abnormal finding Special screening examination for human papillomavirus (HPV) from Last 3 Months or Most Recently Relevant to Health Maintenance Results * COMPREHENSIVE METABOLIC PANEL (06/17/2025 9:52 AM CDT) Blood us Jesus Fox MD CHEMISTRY ORDERABLES Final Resu lt * VITAMIN B12 AND FOLATE (06/13/2025 1:51 PM CDT) VITAMIN B12 473 200 - 1100 pg/mL [email or web address] FOLATE, SERUM >24.0 ng/mL [facility] Comment: Reference Range Low: <3.4 Borderline: 3.4-5.4 Normal: >5.4 FASTING:NO FASTING: NO Test Performed at: [facility] [address] [place] [address] Francine Flores MD Blood 06/13/2025 1:51 PM CDT 06/13/2025 1:51 PM CDT Jesus Fox MD CHEMISTRY ORDERABLES Final Resu lt Performing Organization Address City/[facility]/ZIP Co de Phone Number [facility] [phone] [facility] [address] [place] [address] * TRANSFERRIN RECEPTOR TFR SOLUBLE (06/13/2025 1:51 PM CDT) TRANSFERRIN RECEPTOR TFR SOLUBLE 1.72 0.76 - 1.76 mg/L [facility], Comment: FASTING:NO FASTING: NO Test Performed at: [email or web address], [address] [place] [phone] Lizbeth Alves MD,PhD,MEREDITH Blood 06/13/2025 1:51 PM CDT 06/13/2025 1:51 PM CDT Jesus Fox MD CHEMISTRY ORDERABLES Final Resu lt Performing Organization Address [facility] Co de Phone Number [facility] [phone] [facility], [address] [place] [address] * METHYLMALONIC ACID (06/13/2025 1:51 PM CDT) METHYLMALONIC ACID 120 55 - 335 nmol/L [facility] Comment: See Note 1 Serum methylmalonic acid (MMA) levels are used to diagnose and monitor several rare inborn errors of metabolism, including methylmalonic aciduria. The enzymatic conversion of MMA to succinic acid requires vitamin B12 (adenosyl-cobalamin) as a cofactor. Serum MMA levels are also used for assessing functional vitamin B12 deficiency. Vitamin B12 is essential for neurodevelopment, particularly early in . Undiagnosed maternal vitamin B12 deficiency may be associated with adverse / outcomes, such as neural tube defects and intrauterine growth restriction. [email or web address] utilized Multi-Modal Decomposition (MMD) analysis to establish first and second trimester-specific MMA reference intervals in , as given below: MMA, First trimester (<13 wks gestation): 58-167 nmol/L MMA, Second trimester (13-23 wks gestation): 63-241 nmol/L Note 1 This test was developed and its analytical performance characteristics have been determined by [email or web address]. It has not been cleared or approved by the FDA. This assay has been validated pursuant to the CLIA regulations and is used for clinical purposes. FASTING:NO FASTING: NO Test Performed at: [email or web address] [address] Stephan Estevez Blood 06/13/2025 1:51 PM CDT 06/13/2025 1:51 PM CDT Jesus Fox MD CHEMISTRY ORDERABLES Final Resu lt Performing Organization Address [facility] Co de Phone Number [facility] [phone] [facility] [address] * (ABNORMAL) IRON, TIBC, AND PERCENT SATURATION (06/13/2025 1:51 PM CDT) Pathologist [facility] IRON 145 45 - 160 mcg/dL [facility] TIBC 485(H) 250 - 450 mcg/dL (calc) [facility] IRON % SATURATION 30 16 - 45 % (calc) [facility] Comment: Test Performed at: [email or web address] [address] [place] [address] Francine Flores MD Blood 06/13/2025 1:51 PM CDT 06/13/2025 1:51 PM CDT Jesus Fox MD CHEMISTRY ORDERABLES Final Resu lt Performing Organization Address City/[facility]/ZIP Co de Phone Number [facility] [phone] [facility] [address] [place] [phone] * SPIKE SCREEN W/REFLEX (06/13/2025 1:51 PM CDT) Pathologist [facility] SPIKE SCREEN NEGATIVE NEGATIVE [email or web address] [place] Comment: SPIKE IFA is a first line screen for detecting the presence of up to approximately 150 autoantibodies in various autoimmune diseases. A negative SPIKE IFA result suggests an SPIKE-associated autoimmune disease is not present at this time, and does not reflex further. If there is high clinical suspicion for Sjogren's syndrome, testing for anti-SS-A/Ro antibody should be considered. Anti-Roxane-1 antibody should be considered for clinically suspected inflammatory myopathies. AC-0: Negative International Consensus on SPIKE Patterns (https://doi.org/10.1515/vetu-7471-0988) For additional information, please refer to http://education.evolso/faq/MMG975 (This link is being provided for informational/ educational purposes only.) FASTING:NO FASTING: NO Test Performed at: [facility] [address] Francine Flores MD Blood 06/13/2025 1:51 PM CDT 06/13/2025 1:51 PM CDT Jesus Fox MD CHEMISTRY ORDERABLES Final Resu lt [facility] [phone] [facility] [employer] [address] * (ABNORMAL) FERRITIN (06/13/2025 1:51 PM CDT) [facility] FERRITIN 8(L) 16 - 232 ng/mL [email or web address] Comment: Test Performed at: [email or web address] [place] [address] Francine Flores MD Blood 06/13/2025 1:51 PM CDT 06/13/2025 1:51 PM CDT Jesus Fox MD CHEMISTRY ORDERABLES Final Resu lt [facility] [phone] [email or web address] [address] [place] [address] * US ABDOMEN COMPLETE (06/13/2025 12:19 PM CDT) Anatomical Region Laterality Modality Abdomen Ultrasound Jesus Fox MD US ORDERABLES Final Result * COLONOSCOPY REPORT (03/03/2023 7:55 AM CDT) Narrative Procedure Note Kirti Castillo MD - 03/03/2023 7:55 AM CDT [facility] Endoscopy Patient Name: Anjana Parekh Procedure Date: 03/03/2023 Date of : 1975 [...] Addenda: 0 Procedure Date: 03/03/2023 7:26:[address] [place], [place] [id number] Kirti Castillo MD GI PROCEDURE ORDERABLES F inal Result * MAMMO SCRN BILAT 3D GAUDENCIO W OR WO CAD (05/31/2022) Anatomical Region Laterality Modality Breast Bilateral Mammography Nick Whittaker MD MAMMO ORDERABLES Final Resul t * (ABNORMAL) CERV/VAG CYTO SCREEN PAP W/HPV (02/01/2022 2:45 PM CDT) CLINICAL INFORMATION [facility] Comment:Information not prov ided LAST MENSTRUAL PERIOD [facility] Comment:INFORMATION NOT PROV IDED PREV PAP: [facility] Comment:INFORMATION NOT PROV IDED PREV BX: [facility] Comment:INFORMATION NOT PROV IDED SOURCE [facility] Comment:Endocervix ADEQUACY: [facility] Comment: Satisfactory for evaluation. Endocervical/transformation zone component absent. Age and/or menstrual status not provided PAP INTERP [facility] Comment:Negative for intraep ithelial lesion or malignancy. COMMENT (PAP TEST) [facility] Comment: This Pap test has been evaluated with computer assisted technology. PULPER TENDER: [facility] Comment: DDS, CT(ASCP) CT screening location: [place] [address] [place] [address] REVIEW PULPER TENDER: [facility] Comment: AMW, CT(ASCP) CT screening location: [place] [address] [address] [place] [address] EXPLANATORY NOTE [facility] Comment: EXPLANATORY NOTE: The Pap is a [...] information. HPV E6/E7 Detected( A) Not Detected [facility] Comment: Methodology: Metal Mover-Mediated Amplification This assay detects E6/E7 viral messenger RNA (mRNA) from 14 high-risk HPV types (16,18,31,33,35,39,45,51,52,56,58,59,66,68). Cervical sources are required for HPV testing. If a vaginal source from a patient who has had a total hysterectomy with removal of cervix was submitted, please contact the testing laboratory for alternative testing options. For additional information, please refer to http://education.[employer]/faq/GMI655u3 (This link if provided for information/ educational purposes only.) Test Performed at: [email or web address] [address] [place] [address] Edwin Arenas D.O., MPH SL Genital SWAB OF ENDOCERVIX / Unknown 02/01/2022 2:45 PM CDT 02/01/2022 11:40 PM CDT Nick Whittaker MD PATHOLOGY/CYTOLOGY ORDERABLE S Final Result [facility] [phone] from Last 3 Months or Most Recently Relevant to Health Maintenance Insurance [employer] [facility] Address: [address] [place] [address] [employer] [facility] Address: [facility] [id number] [place] [address] Advance Directives For more information, please contact: [phone] * Full Code (Latest Code Status on File) Date Activated Date Inactivated Comments 03/03/2023 7:06 AM 03/03/2023 10:30 AM Care Teams Cash Sales Audit Clerk Relationship Specialty Start Date End Date Cricket Mccain DO [address] [place] [phone] PCP - General Family Practice 03/03/23
--- OUTSIDE RECORDS SUMMARY | 2025-07-10 17:17 | XMS_ITS | Encounter Summary ---
Author Organization [facility] Address [address] [place] [address] Care Team Providers Care Bar And Filler Assembler Name Role Phone Cricket Mccain DO Primary Care Provider + Encounter Details Date Type Department Care Team (Late st Contact Info) Description 09/05/2007 Outpatient Historical HIS PATIENT IN A BED Nick Whittaker MD [address] [place] [phone] Sim Ordonez MD [address] [place] [phone] Social History Tobacco Use Types Packs/Day Years Used Date Smoking Tobacco: Never Assessed Comments Unknown Sex and Gender Information Value Date Recorded Sex Assigned at Not on file Legal Sex Female 3:19 AM HUMAN RESOURCES ASSOCIATE Gender Identity Not on file Sexual Orientation Not on file documented as of this encounter Plan of Treatment Upcoming Encounters Date Type Department Care Team (Late st Contact Info) Description 11/06/2025 2:15 PM CDT Office Visit [facility] Oncology and Hematology - Alfie [address] [facility] [address] [place] [address] Jesus Fox MD [address] [facility] [address] [place] [address] documented as of this encounter Procedures Procedure Name Priority Date/Time Associated Diagnosis Comments URINALYSIS WITH REFLEX CULTURE Routine 09/05/2007 5:28 PM HUMAN RESOURCES ASSOCIATE URINALYSIS W/REFLEX MICROSCOPIC Routine 09/05/2007 5:28 PM HUMAN RESOURCES ASSOCIATE documented in this encounter Results * URINALYSIS (09/05/2007 5:28 PM HUMAN RESOURCES ASSOCIATE) COLOR UA Pale Yellow INTERFAC E SYSTEM [...] Negative Negative INTERFACE SYSTEM 09/05/2007 5:28 PM HUMAN RESOURCES ASSOCIATE Nick Whittaker MD URINE ORDERABLES Edited Performing Organization Address [facility] de Phone Number INTERFACE SYSTEM Refer to clinic/hospital department * URINALYSIS WITH REFLEX CULTURE (09/05/2007 5:28 PM HUMAN RESOURCES ASSOCIATE) URINE CULTURE ORDER Not indicated INTERFACE SYSTEM Comment: Criteria for a reflex culture include one or more of the following: Abn ormal nitrite, leukocyte esterase, WBCs or RBCs. Lack of qualifying criteria does not exclude the possiblity of a urinary tract infection. Dilute urine, drug interference, etc. may decrease the sensitivity of the criteria analytes. 09/05/2007 5:28 PM HUMAN RESOURCES ASSOCIATE Nick Whittaker MD URINE ORDERABLES Edited Performing Organization Address [facility] Co de Phone Number INTERFACE SYSTEM Refer to clinic/hospital department documented in this encounter Visit Diagnoses Not on filedocumented in this encounter Care Teams Bar And Filler Assembler Relationship Specialty Start Date End Date Cricket Mccain DO [address] [place] [phone] PCP - General Family Practice 03/03/23 documented as of this encounter
--- OUTSIDE RECORDS SUMMARY | 2025-07-10 17:17 | XMS_ITS | Clinical Summary ---
Author Organization [facility] Address [address] [place] [address] Care Team Providers Care Jukebox Routeman Name Role Phone Nick Whittaker MD Unavailable [phone] Cricket Mccain DO Primary Care Provide r [...] on file Legal Sex Female 4:06 AM RADIOLOGY MANAGER Gender Identity Female 09/07/2021 1:17 PM RADIOLOGY MANAGER Sexual Orientation Straight 04/29/2021 2: 59 PM [...] Comments Blood Pressure 136/78 08/03/2024 1:03 PM RADIOLOGY MANAGER Pulse 84 08/03/2024 1:03 PM RADIOLOGY MANAGER Temperature 36.6 C (97.8 F) 08/03/2024 1:03 PM RADIOLOGY MANAGER Respiratory Rate 16 08/03/2024 1:03 PM RADIOLOGY MANAGER Oxygen Saturation 99% 08/03/2024 1:03 PM RADIOLOGY MANAGER Inhaled Oxygen Concentration - - Weight 72.7 kg (160 lb 4.8 oz) 08/03/2024 1:03 P M RADIOLOGY MANAGER Height 174 cm (5' 8.5) 08/03/2024 1:03 PM RADIOLOGY MANAGER Body Mass Index 24.02 08/03/2024 1:03 PM RADIOLOGY MANAGER Plan of Treatment Health Maintenance Due Date [...] DETECTION WITH GENOTYPING Routine 08/03/2024 5:26 PM RADIOLOGY MANAGER Abnormal uterine bleeding from Last 3 Months or Most Recently Relevant to Health Maintenance Results * High Risk HPV DNA Detection with Genotyping (Molecular component) (08/03/2024 5:26 PM RADIOLOGY MANAGER) Pathologist [facility] HPV HR 16 Not Detected Not Detected [facility] HPV HR 18 Not Detected Not Detected [facility] HPV HR Non 16/18 Not Detected Not Detected [facility] Comment: Interpretive Data Nucleic acid amplification for [...] have been verified by the [facility] Molecular Infectious Disease laboratory. Correlate with separately reported cytology results, as applicable. Interpretive data last revised 23 Endocervical 08/03/2024 5:26 PM RADIOLOGY MANAGER 08/07/2024 12:52 AM RADIOLOGY MANAGER Narrative [facility] - 08/08/2024 4:33 AM RADIOLOGY MANAGER Clinical history and diagnosis->History of abnormal pap s/p LEEP Number of vials->1 Testing type->Screening Last menstrual period (date if known)->07/19/2024 Contraceptive use-> control pills us Rodney Saleh MD LAB BODY FLUIDS AND STOOLS REBECCA JOY Final Result [facility] Department [place] [address] [facility] from Last 3 Months or Most Recently Relevant to Health Maintenance Insurance [facility] CHOICE PLUS CIG ALLEGIANCE [facility] HMO/PPO Address: [facility] [id number] [place] [address] [employer] Care Teams Jukebox Routeman Relationship Specialty Start Date End Date Cricket Mccain DO [address] [place] [id number] PCP - General Family Medicine 03/06/24 Nick Whittaker MD [address] [place] [phone] Consulting Physician Obstetrics and Gynecology 03/11/22
--- OUTSIDE RECORDS SUMMARY | 2025-07-10 17:17 | XMS_ITS | Clinical Summary ---
Author Organization [facility] Address [address] [place] [address] Care Team Providers Care Informatics Application Analyst Name Role Phone Stephan Brewer MD Primary Care Provider [phone] Source Comments [facility],non-owned Affiliates and Associated Physician Practices is amultiple site organization consisting of ambulatory clinics and hospital sitesin [place], [place], [place] and [place]. This disclosure is being madepursuant to the Care Everywhere program and may not contain all information available regarding this patient. Last updated 18.[employer] [facility] Allergies No known active allergies Medications * Be aware that medications may not be up to date on this document. Alwaysverify current medications with the patient. Multiple Vitamin (MULTI VITAMIN DAILY PO) Active fluticasone propionate (FLONASE) 50 MCG/ACT nasal spray [place] 2 sprays into each nostril once daily [...] on file Legal Sex Female 12:29 PM INFECTIOUS DISEASE PHYSICIAN Gender Identity Not on file Sexual Orientation [...] of 3 - 19+ 3-dose series) 1994 PAP SMEAR 1996 Cervical Cancer Screening 2005 PAP with HPV 2005 DEPRESSION SCREENING 08/22/2024 COVID-19 VACCINE (1 - 2024-2 6 season) 2025 INFLUENZA VACCINE (#1) 2025 0, [...] patient's age to complete this topic Insurance [facility] Care Teams Informatics Application Analyst Relationship Specialty Start Date End Date Stephan Brewer MD [address] [place] [address] PCP - General Family Medicine 07/15/17
--- OUTSIDE RECORDS SUMMARY | 2025-07-10 17:17 | XMS_ITS | Encounter Summary ---
Author Organization [facility] Address 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 Gender Identity Not on file Sexual Orientation Not on file documented as of this encounter Plan of Treatment Upcoming Encounters Date Type Department Care Team (Late st Contact Info) Description 11/06/2025 2:15 PM CDT Office Visit [facility] Oncology and Hematology - [place] [address] [facility] [address] [place] [address] Jesus Fox MD [address] [facility] [address] [place] [address] documented as of this encounter Visit Diagnoses Diagnosis Unspecified indication for care or intervention related to labor and delivery, delivered- Primary documented in this encounter Care Teams Nuclear Monitoring Technician Relationship Specialty Start Date End Date Cricket Mccain DO [address] [place] [phone] PCP - General Family Practice 03/03/23 documented as of this encounter
--- OUTSIDE RECORDS SUMMARY | 2025-07-10 17:17 | XMS_ITS | Encounter Summary ---
Author Organization [facility] Address 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 Gender Identity Not on file Sexual Orientation Not on file documented as of this encounter Plan of Treatment Upcoming Encounters Date Type Department Care Team (Late st Contact Info) Description 11/06/2025 2:15 PM CDT Office Visit [facility] Oncology and Hematology - [place] [address] [facility] [address] [place] [address] Jesus Fox MD [address] [facility] [address] [place] [address] documented as of this encounter [...] Leong MD CHEMISTRY ORDERABLES Final Res ult INTERFACE SYSTEM Refer to clinic/hospital department documented in this encounter Visit Diagnoses Diagnosis Telogen effluvium- Primary documented in this encounter Care Teams Optometric Technologist Relationship Specialty Start Date End Date Cricket Mccain DO [address] [place] [phone] PCP - General Family Practice 03/03/23 documented as of this encounter
--- OUTSIDE RECORDS SUMMARY | 2025-07-10 17:18 | XMS_ITS | Encounter Summary ---
Author Organization [facility] Address 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 Gender Identity Not on file Sexual Orientation Not on file documented as of this encounter Plan of Treatment Upcoming Encounters Date Type Department Care Team (Late st Contact Info) Description 11/06/2025 2:15 PM CDT Office Visit [facility] Oncology and Hematology - [place] [address] [place] [address] [address] [place] [address] Jesus Fox MD [address] [facility] [address] [place] [address] documented as of this encounter Procedures Procedure Name Priority Date/Time Associated Diagnosis Comments CBC WITH DIFFERENTIAL Routine 10/09/2007 9:55 AM BLEACH PACKER URINALYSIS W/REFLEX MICROSCOPIC Routine 10/09/2007 9:55 AM BLEACH PACKER documented in this encounter Results * URINALYSIS (10/09/2007 9:55 AM BLEACH PACKER) Pathologist [facility] LEUKOCYTE ESTERASE UA Negative Negative [facility] SPECIFIC GRAVITY UA 1.013 1.001 - 1.035 [facility] BLOOD UA Negative Negative [facility] GLUCOSE UA Negative Negative [facility] COLOR UA Yellow [facility] NITRITE UA Negative Negative [facility] UROBILINOGEN UA <1 <=1 mg/dL [facility] PH UA 6.5 5.0 - 8.0 [facility] KETONES UA Negative Negative [facility] CLARITY UA Clear Clear [facility] PROTEIN UA Negative Negative [facility] BILIRUBIN UA Negative Negative [facility] Urine, clean catch 10/09/2007 9:55 AM BLEACH PACKER 10/09/2007 10:14 AM BLEACH PACKER Nick Whittaker MD URINE ORDERABLES Final Resul t [facility] [address] [facility] [place] [address] * (ABNORMAL) CBC WITH DIFFERENTIAL (10/09/2007 9:55 AM BLEACH PACKER) Pathologist [facility] MPV 12.2 9.3 - 12.4 fL [facility] HEMATOCRIT 36.4 35.5 - 44.0 % [facility] RDW-STDEV 44.5 37.1 - 48.7 fL [facility] RBC 4.11 3.90 - 4.90 M/uL [facility] MCHC 33.5 31.5 - 35.5 % [facility] MCV 88.6 82.0 - 99.0 fL [facility] PLATELETS 190 140 - 350 K/uL [facility] HEMOGLOBIN 12.2 11.8 - 14.8 g/dL [facility] RDW 13.9 11.5 - 14.5 % [facility] WBC 9.3 4.0 - 9.8 K/uL [facility] MCH 29.7 27.2 - 32.6 pg [facility] BASOPHILS 0 0 - 2 % [facility] BASOPHILS ABSOLUTE 0.03 0.00 - 0.20 K/uL [facility] MONOCYTES 6 3 - 13 % [facility] MONOCYTE ABSOLUTE 0.58 0.10 - 1.30 K/uL [facility] NEUTROPHILS 74(H) 45 - 70 % [facility] NEUTROPHIL ABSOLUTE 6.85 1.90 - 7.00 K/uL [facility] EOSINOPHILS 1 0 - 7 % [facility] EOSINOPHIL ABSOLUTE 0.05 0.00 - 0.70 K/uL [facility] LYMPHOCYTES 19 16 - 45 % [facility] LYMPHOCYTE ABSOLUTE 1.78 0.70 - 4.50 K/uL [facility] Blood specimen (specimen) 10/09/2007 9:55 AM BLEACH PACKER 10/09/2007 10:13 AM BLEACH PACKER us Nick Whittaker MD HEMATOLOGY ORDERABLES Edited INTERFACE SYSTEM Refer to clinic/hospital department [facility] [address] [place] [address] documented in this encounter Visit Diagnoses Diagnosis Normal delivery delivery, without mention of indication, delivered, with or without mention of antepartum condition documented in this encounter Care Teams Director Of Premium Seat Sales Relationship Specialty Start Date End Date Cricket Mccain DO [address] [place] [phone] PCP - General Family Practice 03/03/23 documented as of this encounter
== END 2025-07-10 11:50 | disposition home or self-care (01) ==
LOC: CHSIMG 11:50
PROVIDERS: PCP Student in an Organized Health Care Education/Training Program; Visit Provider Obstetrics & Gynecology Gynecologic Oncology
DX: Z12.31 Encounter for screening mammogram for malignant neoplasm of breast (principal)
CPT/HCPCS: 77063; 77067